=== PATIENT | male | born 1975 | race Caucasian/White ===

== ENCOUNTER 2016-11-29 22:44 | Inpatient (IN) | payer OTHER ==
[~2016-11-29] VITALS: Ht 177.8 cm; Wt 132.3 kg
--- NOTE | ~2016-11-29 | HC ---
[facility] [address] [place] [address] CONSULTATION Name: JENNIFER GARZA JR Room #: 218-P ADM IN M.R.#: [id number] Admission: 11/30/16 Attend Phys: Terrance Garnica MD Discharge: Date of : 77 Report #: [id number] THIS REPORT FOR: //name// CC: Kerry Garnica DATE OF SERVICE: 11/30/2016 Cardiology Consultation INDICATION: Chest pain. HISTORY OF PRESENT ILLNESS: This is a 41-year-old gentleman with a history of diabetes mellitus, hypertension, hypercholesterolemia, presenting with several weeks duration of chest discomfort. He describes the discomfort in the substernal area, radiating down the left arm into the left lateral side. It can occur at rest or when he is working. At times, he will feel associated symptoms of shortness of breath. It has been ongoing for quite some time, and he is concerned as he has a strong family history for premature CAD. His mother has had multiple MIs. There is no history of fever, chills or congestion. PAST MEDICAL HISTORY: Diabetes mellitus, follows at the [facility]. History of hypertension, hypercholesterolemia, asthma. ALLERGIES: INCLUDE ASPIRIN. MEDICATIONS: Include albuterol inhaler, Celexa 40 mg daily, ____ hydrochlorothiazide 25 mg daily and metformin 500 mg daily. SOCIAL HISTORY: Smokes 3 cigarettes per day. FAMILY HISTORY: Mother with a history of LA in her 50s. REVIEW OF SYSTEMS: A full 10-point review of systems performed, only the pertinent positives and negatives are described in the HPI. PHYSICAL EXAMINATION: VITAL SIGNS: Blood pressure is 140/70, heart rate is 90 beats per minute. GENERAL APPEARANCE: This is an overweight male in no acute respiratory distress. HEAD AND EYES: Normocephalic. Sclerae are anicteric. ENT: Oral mucosa moist. NECK: Supple. LUNGS: Clear to auscultation. [facility] [address] [place] [address] CONSULTATION Name: GREGJENNIFERLUIS M Milan JR Room #: 218-P [facility] IN ..#: [id number] Admission: 11/30/16 Attend Phys: Terrance Garnica MD Discharge: Date of : 77 Report #: [id number] CARDIAC: Regular rate and rhythm, S1, S2 positive. ABDOMEN: Soft. EXTREMITIES: No major joint deformities. NEUROLOGIC: Alert and oriented x 3 ECG reveals sinus rhythm. LABORATORY VALUES: Troponin levels are negative. White count is 15.4, sodium is 16.2, creatinine is 0.9. ASSESSMENT: 1. Unstable angina, he has been experiencing ongoing symptoms for the past several weeks. He has significant CAD risk factors as described above and will require stress testing. Given his size, he will need to be scheduled for a nuclear stress test. 2. Hypertension, continue with medications. 3. Diabetes mellitus, continue with metformin. 4. Hypercholesterolemia, check lipid panel. 5. Tobacco use, complete smoking cessation is recommended. <ELECTRONICALLY SIGNED> By: Aneudy Gonzalez MD 12/01/16 0805 [id number] Aneudy Gonzalez MD /nt
--- NOTE | ~2016-11-29 | EKG ---
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: ALLEN : 1975 Requested By: Mikhail Oakes Order Number: [id number] MD: Aneudy Gonzalez Measurements Intervals [place] Rate: 103 P: 59 [place]: 141 QRS: -6 QRSD: 97 T: 6 QT: 341 QTc: 447 Interpretive Statements Sinus tachycardia Probable left atrial enlargement ST elev, probable normal early repol pattern No previous ECG available for comparison Electronically Signed On 11-30-2016 12:35:50 CDT by Aneudy Gonzalez [email or web address] <ELECTRONICALLY SIGNED> By: Aneudy Gonzalez MD 11/30/16 1235 2319 [id number] Aneudy Gonzalez MD /MEL
--- NOTE | ~2016-11-29 | H ---
[facility] [address] [place] [address] HISTORY AND PHYSICAL Name: YARED GARZAT JR Kayli Room #: 218-P [facility] IN .R.#: [id number] Admission: 11/30/16 Attend Phys: Jesika Paez MD Discharge: 12/02/16 Date of : 77 Report #: [id number] THIS REPORT FOR: //name// CC: Kerry Garnica DATE OF SERVICE: 11/30/2016 ATTENDING PHYSICIAN: Dr. Terrance Garnica. PRIMARY CARE PHYSICIAN: [facility]. CHIEF COMPLAINT: Left-sided chest pain. HISTORY OF PRESENT ILLNESS: The patient is a 41-year-old male who states this evening he started having sudden onset left-sided chest pain. He thought it was related to heartburn, so he tried some Zantac, which did not help. The pain seemed to be getting worse, was associated with some nausea, some sweating and headache. He was feeling lightheaded and thought he was going to pass out. He said he has been having some indigestion on and off, but this seemed worse. He denies any prior episodes of this type of chest pain. He denies any prior history of coronary artery disease. He said he has had a stress test at the age of 29, because of some chest pain and it was negative and he was told afterwards it was likely related to anxiety. He did not typically take anything for anxiety, but says he is under a large amount of stress at work and at home as he does have 8 children between him and his fiance. He did notice at home his blood sugar was up to 230. He says he has been taking his metformin, but despite that, his sugars are still running in the 200s to 300s when he does check them, but he does not check it regularly. [facility] 4 [facility] him off his 70/30 and Humalog insulin, he is not really sure why and since then his blood sugars have not been very controlled. He also was supposed to be taking blood pressure medication. His blood pressure at home was 200/104. He ran out of all his blood pressure meds about one month ago. He currently states his chest pain is 3/10 after receiving some morphine shortly after arrival to the floor. Initially, he rated his pain 9/10. He has been admitted for further evaluation. PAST MEDICAL HISTORY: Diabetes, asthma, depression, hypertension, hyperlipidemia. PAST SURGICAL HISTORY: Abdominal hernia repair, right shoulder repair and ankle surgery. ALLERGIES: ASPIRIN CAUSES ASTHMA ATTACKS. [address] [address] HISTORY AND PHYSICAL Name: JNENIFER GARZA JR Room #: 218-P [facility] IN ..#: [id number] Admission: 11/30/16 Attend Phys: Jesika Paez MD Discharge: 12/02/16 Date of : 77 Report #: [id number] HOME MEDICATIONS: Albuterol inhaler p.r.n., Celexa 40 mg daily, Ambien 5 mg at bedtime, hydrochlorothiazide 25 mg daily, metformin 500 mg daily. SOCIAL HISTORY: The patient smokes 2-3 cigarettes per day. He has been smoking for about 10 years total, but had quite at one point for about 18 years. Denies any drug use. 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 He lives at home with his fiance and their 8 children. FAMILY HISTORY: Significant for heart disease. His mother had an OH in her 50s and had required stents. His grandfather also had heart problems. His father at the age of 35 in his sleep and was told his "heart exploded," but it was felt afterwards to be due to possible drugs. REVIEW OF SYSTEMS: Twelve point review of systems was reviewed with the patient, otherwise negative unless stated in the HPI. PHYSICAL EXAMINATION: GENERAL: The patient is an alert male, in no acute distress. VITAL SIGNS: Temperature is 37.3, heart rate 109, respirations 20, blood pressure is 171/90, oxygen 95% on room air. HEENT: PERRLA. Sclerae is nonicteric. Oral mucosa is pink and moist. NECK: Supple, no JVD noted. CARDIOVASCULAR: Normal S1, S2. No murmurs, rubs or gallops. RESPIRATORY: Breath sounds are clear bilaterally. No wheezing or rhonchi. Breathing is nonlabored. Somewhat diminished in both bases. He does have some mild left-sided chest wall pain to palpation. VASCULAR: There is no edema noted. Pedal pulses are 2+. NEUROLOGIC: The patient is alert and oriented x 3. Speech is clear. He is moving all extremities equally. No focal neuro deficits noted. LABORATORY DATA AND DIAGNOSTICS: WBC is 15.4, hemoglobin 16.2, platelets 191, sodium 138, potassium is 4.6, BUN 15, creatinine 0.9, glucose 140. Troponins negative. BNP is 22. EKG is showing sinus tachycardia. Chest x-ray is negative and CT of the abdomen shows no hydronephrosis or any acute findings. There is left upper pole density in the kidney which may represent parenchymal calcification, a small complicated cyst or a tiny nodule and there is also an uncomplicated fat containing ventral hernia. ASSESSMENT AND PLAN: 1. Chest pain. This does not seem to be cardiac related. His initial cardiac workup including EKG and cardiac enzymes are negative. We will check a D-dimer and if positive send for a CT angio of the chest, although he does have very little risk factors for deep vein thrombosis. He may have some anxiety causing his chest pain. We will add some Xanax p.r.n. He unfortunately cannot have a stress test over the weekend at this facility. It is possible that if his [facility] [address] [place] [address] HISTORY AND PHYSICAL Name: JENNIFER GARZA JR Room #: 218-P [facility].#: [id number] Admission: 11/30/16 Attend Phys: Jesika Paez MD Discharge: 12/02/16 Date of : 77 Report #: [id number] initial workup is negative, he can get set up for an outpatient stress test as well. We will consult Cardiology to help set this up. 2. Hypertensive urgency. The patient has been noncompliant with his medications. We will resume his previously prescribed home meds and follow blood pressure closely and add other medications if needed. 3. Diabetes type 2. Blood sugar is stable. We will add sliding scale insulin and continue with metformin. Check hemoglobin A1c, and based on his A1c, we will decide if he needs to go back on insulin. 4. Asthma. This is stable. No signs of exacerbation. 5. Add breathing treatments p.r.n. 6. Hyperlipidemia. Check a fasting lipid panel and continue home meds. 7. Tobacco abuse. The patient has been advised to quit. 8. Deep vein thrombosis prophylaxis. Start Lovenox. We will continue to follow the patient closely throughout the hospitalization and make changes based on clinical status. <ELECTRONICALLY SIGNED> By: HUEY Zimmerman 12/03/16 0658 [id number] HUEY Zimmerman /nt
[2016-11-29 22:46] VITALS: BP 171/90
[2016-11-29] MEDS ORDERED: METFORMIN HCL500 MG (22:54)
[2016-11-29] MEDS ORDERED: VENTOLIN HFA 1818 GM (22:57)
[2016-11-29] MEDS ORDERED: AMBIEN 5 MG TABL5 M1 PO (23:36)
[2016-11-29] MEDS ORDERED: CELEXA20 MG PO (23:36)
[2016-11-29] MEDS ORDERED: HYDROCHLOROTHIA25 M2 PO (23:36)
[2016-11-29 23:40] LABS: ABSOLUTE NEUTROPHILS 9.9 thou/uL (1.4-8.2); BASOPHILS 0.8 % (0.0-2.0); EOSINOPHILS 2.2 % (0.0-3.0); HEMATOCRIT 46.4 % (42.0-52.0); HEMOGLOBIN 16.2 gm/dL (14.0-18.0); LYMPHOCYTES 25.2 % (24.0-44.0); MCH 29.8 pg (26.0-34.0); MCHC 34.8 g/dL (28.0-37.0); MCV 85.6 fL (80.0-100.0); MONOCYTES 7.4 % (1.0-8.0); PLATELET COUNT 291 thou/uL (150-400); POLYS 64.4 % (36.0-66.0); RBC 5.43 mil/uL (4.50-6.00); RDW 13.3 % (10.5-14.5); WBC 15.4 thou/uL (4.0-11.0)
[2016-11-29 23:45] LABS: MANUAL DIFF NO
[2016-11-29 23:50] LABS: ANION GAP 9 mmol/L (7-16); BUN 15 mg/dL (7-18); CALCIUM 9.1 mg/dL (8.5-10.1); CHLORIDE 104 mmol/L (98-107); CO2 25 mmol/L (21-32); CREATININE 0.9 mg/dL (0.6-1.3); GLUCOSE 140 mg/dL (70-99); POTASSIUM 4.6 mmol/L (3.5-5.1); SODIUM 138 mmol/L (136-145)
[2016-11-30] VITALS (7 sets, daily range): BP systolic 125–173; BP diastolic 62–97
[2016-11-30 00:03] LABS: NT-PRO BRAIN NAT PEPTIDE 22 pg/mL (<300); TROPONIN-I < 0.04 ng/mL (<0.04-0.07)
[2016-11-30 06:21] LABS: CHOLESTEROL 207 mg/dL (<200); HDL CHOLESTEROL 58 mg/dL (>40); LDL CHOLESTEROL 135 mg/dL (<100); TC:HDL 3.6 Ratio (Not establshd); TRIGLYCERIDE 71 mg/dL (<150); VLDL 14 mg/dL (<40)
[2016-11-30 21:06] LABS: GLYCOHEMOGLOBIN (HGB A1C) 6.4 % (4.8-5.6)
[2016-12-01 03:45] VITALS: BP 147/88
[2016-12-01 08:00] VITALS: BP 170/90
[2016-12-01 12:44] VITALS: BP 150/92
[2016-12-01 16:21] VITALS: BP 158/97
[2016-12-01 20:06] VITALS: BP 160/88
[2016-12-02 05:15] VITALS: BP 154/92
[2016-12-02 07:23] VITALS: BP 150/91
[2016-12-02 16:42] VITALS: BP 150/91
[2016-12-02 17:48] VITALS: BP 150/91
== END 2016-12-02 17:40 | disposition home or self-care (01) | DRG 313 ==
LOC: ER 22:44 → 2N 11-30 01:02 → EROBS 11-30 01:02 → 2N 11-30 01:38
PROVIDERS: Nurse Practitioner; Nurse Practitioner Acute Care
DX: R07.89 Other chest pain (principal); I20.0 Unstable angina; Z68.41 Body mass index [BMI] 40.0-44.9, adult; I16.0 Hypertensive urgency; F17.210 Nicotine dependence, cigarettes, uncomplicated; E78.5 Hyperlipidemia, unspecified; E78.00 Pure hypercholesterolemia, unspecified; I10 Essential (primary) hypertension; J45.909 Unspecified asthma, uncomplicated; E11.9 Type 2 diabetes mellitus without complications; F32.9 Major depressive disorder, single episode, unspecified; E66.01 Morbid (severe) obesity due to excess calories; Z79.4 Long term (current) use of insulin; Z91.14 Patient's other noncompliance with medication regimen; Z71.6 Tobacco abuse counseling; Z88.6 Allergy status to analgesic agent; Z82.49 Family history of ischemic heart disease and other diseases of the circulatory system; Z79.899 Other long term (current) drug therapy
CPT/HCPCS: 10081